=== PATIENT | female | born 1970 | race Caucasian/White ===

== ENCOUNTER 2020-07-23 06:06 | Day surgery (SDC) | payer OTHER ==
[2020-07-15 15:53] VITALS: BMI 36.2
[2020-07-23 06:48] VITALS: TEMP 97.7
[2020-07-23] MEDS ORDERED: LIDOCAINE HCL 2% (20ML MULTI-DOSE VIAL) ONE (07:15)
[2020-07-23] MEDS ORDERED: SUCCINYLCHOLINE CHLORIDE 200 MG/10 ML SYRINGE ONE (07:22)
[2020-07-23] MEDS ORDERED: MIDAZOLAM HCL 2 MG/2 ML SINGLE DOSE VIAL ONE (07:22)
[2020-07-23] MEDS ORDERED: PROPOFOL 20 ML ONE ×2 (07:22)
[2020-07-23] MEDS ORDERED: ONDANSETRON 4 MG/2 ML VIAL IVPUSH PRN (07:31)
[2020-07-23] MEDS ORDERED: oxyCODONE HCL 5 MG TABLET PO PRN (07:31)
[2020-07-23] MEDS ORDERED: ONDANSETRON 4 MG/2 ML VIAL ONE (07:40)
[2020-07-23] MEDS ORDERED: DEXAMETHASONE SOD PHOSPHATE 4 MG/1 ML VIAL ONE (07:40)
[2020-07-23] MEDS ORDERED: ceFAZolin SODIUM 1 GM VIAL ONE (07:40)
[2020-07-23] MEDS ORDERED: LACTATED RINGERS SOLUTION 1,000 ML IV SCH (07:45)
[2020-07-23] MEDS ORDERED: BUPIVACAINE HCL/PF 0.25% (2.5MG/ML) 10 ML VIAL ONE (07:54)
[2020-07-23] MEDS ORDERED: BUPIVACAINE HCL/PF 0.25% (2.5MG/ML) 10 ML VIAL IJ ONE (07:54)
[2020-07-23 09:21] VITALS: BP 112/78; PULSE 61
== END 2020-07-23 09:25 | disposition home or self-care (01) ==
LOC: FASU 06:06
PROVIDERS: ATTEND Orthopaedic Surgery Sports Medicine
PROC: 01N50ZZ Release Median Nerve, Open Approach (ICD-10-PCS; principal; 2020-07-23 07:54)
DX: G56.02 Carpal tunnel syndrome, left upper limb (principal)
CPT/HCPCS: 81025